=== PATIENT | female | born 1990 | race Caucasian/White ===

== ENCOUNTER 2017-11-07 20:47 | Emergency (ER) | payer OTHER ==
[~2017-11-07] VITALS: Ht 162.6 cm; Wt 63.7 kg
[2017-11-07 20:58] VITALS: BP 116/71; PULSE 78; TEMP 36.7; O2SAT 96; Ht 162.6 cm; Wt 63.7 kg
[2017-11-07] MEDS ORDERED: PHENAZOPYRIDINE HOME PACK 200 MG VIAL PO ONE (21:30)
[2017-11-07] MEDS ORDERED: NITR-5 PO (21:30)
[2017-11-07] MEDS ORDERED: PHEN-876 PO (21:30)
[2017-11-07] MEDS ORDERED: MACROBID 100MG HOME PACK 1 EA VIAL PO ONE (21:30)
--- NOTE | 2017-11-07 22:11 | EMERGENCY ROOM VISIT NOTE ---
ED Visit Note First contact with patient: 21:00 CHIEF COMPLAINT: Frequent and painful urination HISTORY OF PRESENT ILLNESS: This 27 year old white female presents to the emergency department complaining of increased frequency of urination, burning pain with urination, and a feeling of incomplete voiding for the past 2 days. The patient passes very small volumes of urine with each episode of voiding. The patient does not have abdominal pain. They deny back pain, fever, or vaginal discharge. The patient has had frequent urinary tract infections in the past. Patient feels they are not at risk for STIs. REVIEW OF SYSTEMS: A 6 system review of systems was completed with positives and pertinent negatives listed in the HPI. ALLERGIES: NKDA MEDICATIONS: Non PMH: Otherwise healthy SOCIAL HISTORY: Lives [place] PHYSICAL EXAM: Vital Signs: Reviewed Nurse's notes, vital signs stable. GENERAL : White female, in no acute distress, they do not appear toxic, well-developed , well-nourished. ABDOMEN: Positive bowel sounds x 4. The abdomen is soft, mildly tender in the suprapubic area, but no masses or organs are felt. There is no CVA tenderness. The skin is clear. NEURO: Alert and oriented to person place and time. EMERGENCY DEPARTMENT COURSE: I examined the patient. The urine dip was performed and suggest infection. The urine was sent for culture and sensitivity. The patient was given Macrobid and Pyridium pending cultures. The patient was discharged home in good condition. Current/Historical Medications Scheduled Nitrofurantoin Monohyd Macrocr (Macrobid), 100 MG PO BID Phenazopyridine HCl (Pyridium), 200 MG PO TID Allergies Coded Allergies: No Known Allergies (Unverified , 11/07/17) Vital Signs Date Time Temp Pulse Resp B/P (MAP) Pulse Ox O2 Delivery O2 Flow Rate FiO2 11/07/17 20:58 36.7 78 18 116/71 96 Room Air Laboratory Results Test 11/07/17 21:15 Urine Color YELLOW Urine Appearance CLOUDY (CLEAR) Urine pH 5.5 (4.5-7.5) Urine Specific [place] 1.022 (1.000-1.030) Urine Protein 2+ (NEG) Urine Glucose (UA) NEG (NEG) Urine Ketones NEG (NEG) Urine Occult Blood 3+ (NEG) Urine Nitrite NEG (NEG) Urine Bilirubin NEG (NEG) Urine Urobilinogen NEG (NEG) Urine Leukocyte Esterase MODERATE (NEG) Urine WBC (Auto) >30 /hpf (0-5) Urine RBC (Auto) >30 /hpf (0-4) Urine Hyaline Casts (Auto) 1-5 /lpf (0-5) Urine Epithelial Cells (Auto) >30 /lpf (0-5) Urine Bacteria (Auto) 1+ (NEG) Urine Test NEG (NEG) Medications Administered Medications (Trade) Dose Ordered Sig/Marco Route Start Time Stop Time Status Last Admin Dose Admin Nitrofurantoin (Macrobid Homepack 100MG) 1 homepack UD ONCE PO 11/07/17 21:30 11/07/17 21:31 DC 11/07/17 21:37 1 HOMEPACK Phenazopyridine HCl (Phenazopyridine HCl 200MG Home Pack) 1 homepack UD ONCE PO 11/07/17 21:30 11/07/17 21:31 DC 11/07/17 21:37 1 HOMEPACK Departure Information Impression Primary Impression: Urinary tract infection Dispostion Home / Self-Care Condition GOOD Prescriptions Phenazopyridine HCl (Pyridium) 200 Mg Tab 200 MG PO TID for 3 Days, #9 TAB Prov: Ramesh Robles PA-C 11/07/17 Nitrofurantoin Monohyd Macrocr (Macrobid) 100 Mg Cap 100 MG PO BID for 6 Days, #12 CAP Prov: Ramesh Robles PA-C 11/07/17 Referrals No Doctor, Assigned (PCP) Forms HOME CARE DOCUMENTATION FORM, IMPORTANT VISIT INFORMATION Patient Instructions My [facility] Additional Instructions You were seen and evaluated today on an emergency basis only. This is not a substitute for, or an effort to provide, complete comprehensive medical care. It is not possible to recognize and treat all injuries or illnesses in a single emergency department visit. For this reason it is recommended that you followup with your primary care physician with any ongoing or persisting symptoms. Take Macrobid 100 mg twice daily for the next 7 days. Take Pyridium 200 mg 3 times daily. This will change the color of your urine to orange/red. This is normal. Drink plenty of fluids and remain well-hydrated. You are welcome to return to the emergency department anytime with new, worsening, or concerning symptoms.
== END 2017-11-07 21:38 | disposition home or self-care (01) ==
LOC: C.EDB 20:48 → C.EDD 21:38
DX: N39.0 Urinary tract infection, site not specified (principal); Z87.440 Personal history of urinary (tract) infections